=== PATIENT | female | born 1950 | race Caucasian/White ===

== ENCOUNTER 2017-10-04 17:07 | Emergency (ER) | payer OTHER ==
[~2017-10-04] VITALS: Ht 160 cm; Wt 67.5 kg
[2017-10-04 17:10] VITALS: Ht 160 cm; Wt 67.5 kg
[2017-10-04] MEDS ORDERED: LIDOCAINE 1% (MDV) 20 ML INJ SC ONE (18:00)
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
[2017-10-04 18:51] VITALS: BP 136/75; PULSE 70; RESP 18; TEMP 97.9
== END 2017-10-04 18:56 | disposition home or self-care (01) ==
LOC: FTE 17:07
DX: S01.111A Laceration without foreign body of right eyelid and periocular area, initial encounter (principal); S80.211A Abrasion, right knee, initial encounter; S80.212A Abrasion, left knee, initial encounter; W01.0XXA Fall on same level from slipping, tripping and stumbling without subsequent striking against object, initial encounter; Y92.9 Unspecified place or not applicable